=== PATIENT | male | born 2000 | race American Indian/Alaskan Native ===

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

== ENCOUNTER 2021-01-17 21:24 | Emergency (ER) | payer SELFPAY ==
[2021-01-17 21:37] VITALS: BP 128/62
--- NOTE | 2021-01-17 22:16 | Emergency Department Report ---
Chief Complaint: Skin/Abscess/Foreign Body Stated Complaint: BEE STING Time Seen by Provider: 01/17/21 22:10 - HPI History of Present Illness: Patient is a 20-year-old male presents emergency room complaints of a bee sting to the right upper back that occurred earlier today. He denies any rash, facial swelling, difficulty swallowing, difficulty breathing, sensation of throat closing. He denies any allergies to bees. No past medical history. No allergies to medications. Vitals are normal On exam: Non toxic appearing, no acute distress atraumatic, normocephalic normal appearance of the eyes, PERRL, EOMI, no periorbital edema or ecchymosis moist mucus membranes, no angioedema regular heart rate and rhythm, no gallops, no rubs, no murmurs breath sounds are clear bilaterally, no w/r/r A&O x4, no focal neuro deficit skin is warm, dry, intact, no erythema, no urticaria, no rash, no edema, no signs of irritation, no signs of stinger from the bee, no obvious robles from the bee sting Patient has no signs of acute allergic reaction, no signs of infection or cellulitis, no signs of localized reaction Advised patient May take Benadryl as needed for itching but may cause drowsiness. May use cortisone ointment [id number]. Follow-up with a primary care doctor. Return to emergency room for any new or worsening symptoms. - Exam Vital Signs: Vital Signs 01/17/21 21:27 Temperature 98.3 F Pulse Rate 63 Respiratory 18 Rate Blood Pressure 128/62 O2 Sat by Pulse 100 Oximetry MSE screening note: Focused history and physical exam performed. Due to findings the following was ordered: ED Disposition for MSE Clinical Impression: Bee sting Qualifiers: Encounter type: initial encounter Injury intent: accidental or unintentional Qualified Code(s): T63.441A - Toxic effect of venom of bees, accidental (unintentional), initial encounter Disposition: Z-07 MED SCREENING EXAM-LEFT Is pt being admited?: No Does the pt Need Aspirin: No Condition: Stable Instructions: Bee, Wasp, or Hornet Sting, Adult Additional Instructions: May take Benadryl as needed for itching but may cause drowsiness. May use cortisone ointment [id number]. Follow-up with a primary care doctor. Return to emergency room for any new or worsening symptoms. Referrals: LIANET SOW MD [Staff Physician] - 3-5 Days [facility] [Provider Group] - 3-5 Days [facility], [LAB/CONTRACT] - 3-5 Days [facility] [Outside] - 3-5 Days Time of Disposition: 22:15 Print Language: LUX[place]
== END 2021-01-17 22:20 | disposition left against medical advice (07) ==
LOC: ED 21:24
DX: T63.441A Toxic effect of venom of bees, accidental (unintentional), initial encounter (principal); Z53.21 Procedure and treatment not carried out due to patient leaving prior to being seen by health care provider; Y92.89 Other specified places as the place of occurrence of the external cause